=== PATIENT | female | born 1995 | race Hispanic/Latino ===

== ENCOUNTER 2022-11-29 05:00 | Inpatient (IN) | payer OTHER ==
[2022-11-30 08:14] VITALS: BMI 25.0
[2022-11-30] MEDS ORDERED: Lidocaine 1% (PF) 30 ML VIAL SC PRN (09:27)
[2022-11-30] MEDS ORDERED: Methylergonovine 0.2 MG/ML VIAL IM PRN (09:27)
[2022-11-30] MEDS ORDERED: Misoprostol 100 MCG TAB PO SCH (09:27)
[2022-11-30] MEDS ORDERED: Misoprostol 200 MCG TAB PR PRN (09:27)
[2022-11-30] MEDS ORDERED: Diphenoxylate HCl/Atropine Tablet PO PRN (09:27)
[2022-11-30] MEDS ORDERED: Oxytocin 30 units/NS 500 ML 500 ML IV SCH ×2 (09:27)
[2022-11-30] MEDS ORDERED: Carboprost 250 MCG/ML AMP IM PRN (09:27)
[2022-11-30] MEDS ORDERED: Ibuprofen 800 MG TAB PO PRN (09:27)
[2022-11-30] MEDS ORDERED: Promethazine HCl 25 MG/ML VIAL IM PRN ×3 (09:27→18:10)
[2022-11-30] MEDS ORDERED: hydrALAZINE 20 MG/ML VIAL SLOW IVP PRN ×2 (09:27→18:10)
[2022-11-30] MEDS ORDERED: Tranexamic Acid 1,000 MG/10 ML VIAL IVP PRN (09:27)
[2022-11-30] MEDS ORDERED: Ondansetron PF 4 MG/2 ML Vial IVP PRN ×3 (09:27→18:10)
[2022-11-30] MEDS ORDERED: Misoprostol 100 MCG TAB ONE (09:37)
[2022-11-30] MEDS: Lactated Ringer's 1,000 ML IV SCH ×2 (09:46→14:38)
[2022-11-30] MEDS: Misoprostol 100 MCG TAB VAG SCH ×3 (09:46→18:09)
[2022-11-30 09:49] LABS: Hematocrit 28.4 % (34.9-44.5); Hemoglobin 9.1 g/dL (12.0-15.5); Mean Corpuscular Hemoglobin 26.8 pg (27.0-33.0); Mean Corpuscular Volume 83.5 fl (81.6-98.3); Mean Platelet Volume 11.5 fl (7.4-10.4); Platelet Count 270 10x3/uL (150-450); RBC Distribution Width 16.3 % (11.5-14.5); White Blood Cell (WBC) Count 6.8 10x3/uL (3.5-10.5)
[2022-11-30 10:09] LABS: Hep B Surf Ag - L&D Non-Reactive S/CO (NonReactive)
[2022-11-30 10:11] LABS: Syphilis Antibody Nonreactive (Nonreactive); Syphilis Antibody Index 0.06 S/CO (<1.00 Non-Reactive)
[2022-11-30] MEDS ORDERED: fentaNYL/Ropivacaine Epidural 100 ML ONE (13:12)
[2022-11-30] MEDS ORDERED: ePHEDrine Sulfate 50 MG/10 ML VIAL SLOW IVP PRN (14:44)
[2022-11-30] MEDS ORDERED: diphenhydrAMINE 50 MG/ML VIAL IVP PRN (14:44)
[2022-11-30] MEDS ORDERED: Acetaminophen 325 MG TAB PO PRN (14:44)
[2022-11-30] MEDS ORDERED: Moisturizing Cream (Eucerin) 113 GM JAR TOP PRN (14:44)
[2022-11-30] MEDS ORDERED: Naloxone HCl 0.4 mg/ml Vial IVP PRN ×2 (14:44)
[2022-11-30] MEDS ORDERED: Lactated Ringer's 500 ML IV PRN (14:44)
[2022-11-30] MEDS ORDERED: fentaNYL 2 mcg/Ropivacaine 0.2% Epidural 100 ML CADD EPIDURAL SCH (14:45)
[2022-11-30] MEDS ORDERED: Communication Order-Pharmacy FS SCH (14:45)
[2022-11-30] MEDS ORDERED: Lidocaine 1% (PF) 30 ML VIAL ONE (14:50)
[2022-11-30] MEDS: Oxytocin 30 units/NS 500 ML 500 ML IV SCH ×2 (15:00→16:12)
[2022-11-30] MEDS ORDERED: Bupivacaine 0.25% HCL 30 ML VIAL ONE (15:00)
[2022-11-30] MEDS ORDERED: Benzocaine-Menthol 82.5 ML CAN TOP PRN (18:10)
[2022-11-30] MEDS ORDERED: Lanolin Ointment 7 GM TUBE TOP PRN (18:10)
[2022-11-30] MEDS ORDERED: Milk Of Magnesia 30 ML UDCUP PO PRN (18:10)
[2022-11-30] MEDS ORDERED: Bisacodyl 10 MG SUPP PR PRN (18:10)
[2022-11-30] MEDS ORDERED: Boostrix 0.5 ML (Tdap) VIAL (>/=7 yrs of age) IM ONE (18:10)
[2022-11-30] MEDS ORDERED: diphenhydrAMINE 25 MG CAP PO PRN (18:10)
[2022-11-30] MEDS ORDERED: traMADol HCl 50 MG TAB PO PRN (18:15)
[2022-11-30] MEDS: Docusate 100 MG CAP PO SCH (20:08)
[2022-11-30] MEDS: Ibuprofen 800 MG TAB PO SCH (23:04)
[2022-12-01] MEDS: Ibuprofen 800 MG TAB PO SCH ×3 (06:09→21:09)
[2022-12-01] MEDS: Prenatal Vitamin 1 TAB PO SCH (08:09)
[2022-12-01] MEDS: Docusate 100 MG CAP PO SCH ×2 (08:09→21:09)
[2022-12-01] MEDS: Ferrous Sulfate 325 MG TAB PO SCH (08:09)
[2022-12-02] MEDS: Ibuprofen 800 MG TAB PO SCH ×2 (05:41→14:28)
[2022-12-02 07:53] VITALS: BP 113/62; TEMP 98.2
[2022-12-02] MEDS: Ferrous Sulfate 325 MG TAB PO SCH ×2 (08:00→08:44)
[2022-12-02] MEDS: Docusate 100 MG CAP PO SCH (08:45)
[2022-12-02] MEDS: Prenatal Vitamin 1 TAB PO SCH (08:45)
== END 2022-12-02 16:30 | disposition home or self-care (01) | DRG 807 ==
LOC: CSHLD 11-30 07:07 → CSHPP 11-30 17:45
PROVIDERS: ADMIT Family Medicine; ATTEND Family Medicine
PROC: 10E0XZZ Delivery of Products of Conception, External Approach (ICD-10-PCS; principal; 2022-11-30)
PROC: 0KQM0ZZ Repair Perineum Muscle, Open Approach (ICD-10-PCS; 2022-11-30)
PROC: 10907ZC Drainage of Amniotic Fluid, Therapeutic from Products of Conception, Via Natural or Artificial Opening (ICD-10-PCS; 2022-11-30)
PROC: 3E0P7VZ Introduction of Hormone into Female Reproductive, Via Natural or Artificial Opening (ICD-10-PCS; 2022-11-30)
DX: O48.0 Post-term pregnancy (principal); Z37.0 Single live birth; O69.81X0 Labor and delivery complicated by cord around neck, without compression, not applicable or unspecified; Z3A.40 40 weeks gestation of pregnancy; O70.1 Second degree perineal laceration during delivery
CPT/HCPCS: 85027; 86780; 86850; 86900; 86901; 87340; J2590; J7120; S0020